=== PATIENT | female | born 1985 | race Caucasian/White ===

== ENCOUNTER 2017-10-25 11:25 | Observation (INO) | payer OTHER ==
[2017-10-25 14:28] LABS: Hematocrit 42 % (35-47); Hemoglobin 14.4 g/dl (12.0-16.0); Mean Corpuscular HGB Conc 35 g/dl (31-36); Mean Corpuscular Hemoglobin 28 pg (27-31); Mean Corpuscular Volume 82 fL (80-97); Mean Platelet Volume 8 um3 (7.4-10.4); Red Blood Count 5.07 10^6/ul (4.0-5.4); Red Cell Distribution Width 13 % (10.5-15); White Blood Count 10.4 10^3/ul (3.5-10.8)
[2017-10-25 14:36] LABS: Urine Bilirubin Negative (Negative); Urine Glucose Negative (Negative); Urine Nitrite Negative (Negative)
[2017-10-25] MEDS ORDERED: Ondansetron INJ* 2 MG/ML VIAL IV ONE ×2 (14:36→19:29)
[2017-10-25] MEDS ORDERED: Morphine INJ* 4 MG/ML 1 ML CARPUJECT IV ONE ×3 (14:36→19:29)
[2017-10-25] MEDS: NS 0.9% 1000 ML* 2,000 ML IV ONE (14:44)
[2017-10-25 14:45] LABS: Albumin 4.2 g/dL (3.2-5.2); BUN/Creatinine Ratio 7.5 (8-20); C Reactive Protein 7.82 mg/L (< 5.00); Calcium 9.7 mg/dL (8.6-10.3); EGFR African American 132.9 (>60); EGFR Non-African American 103.3 (>60); Globulin 3.6 g/dL (2-4); Total Bilirubin 0.5 mg/dL (0.2-1.0); Total Protein 7.8 g/dL (6.4-8.9)
[2017-10-25] MEDS ORDERED: Iohexol 300* (CONTRAST) 10 ML SDV IV ONE (15:30)
--- NOTE | 2017-10-25 16:01 | RAD ---
HISTORY: L pain COMPARISONS: None TECHNIQUE: Multiple transverse and longitudinal ultrasound images were obtained of the right upper quadrant of the abdomen using grayscale and color Doppler imaging. FINDINGS: LIVER: The liver is normal in shape, size, contour, and echogenicity. There are no focal parenchymal masses. There is normal hepatopedal flow of the portal vein on Doppler imaging. BILIARY TREE: There is no intrahepatic or extrahepatic biliary dilatation. The common duct measures 0.3 cm. GALLBLADDER: The gallbladder is well-visualized. There is no cholelithiasis, gallbladder wall thickening, pericholecystic fluid, or sonographic Vinson sign. PANCREAS: The head of the pancreas is unremarkable. The tail of the pancreas is not well visualized secondary to overlying bowel gas. RIGHT KIDNEY: The right kidney is normal in shape, size, contour, and echogenicity. There is no hydronephrosis or nephrolithiasis. The right kidney measures 11.5 x 5.2 x 4.5 cm. AORTA AND IVC: The aorta and IVC are unremarkable. FLUID: There are no pleural effusions. There is no free fluid within the hepatorenal recess. OTHER FINDINGS: None. IMPRESSION: NO ACUTE SONOGRAPHIC PATHOLOGY OF THE VISUALIZED PORTION OF THE ABDOMEN.
--- NOTE | 2017-10-25 17:19 | RAD ---
CLINICAL HISTORY: Abdominal pain, vomiting COMPARISON: The gallbladder ultrasound dated October 25, 2017 TECHNIQUE: Multiple contiguous axial CT scans were obtained of the abdomen and pelvis after the administration of intravenous contrast. Coronal and sagittal multiplanar reformations are submitted for review. Oral contrast was administered. Delayed images were obtained through the abdomen and pelvis. FINDINGS: LUNG BASES: The lung bases are clear. LIVER: The liver is diffusely low in attenuation compared to the spleen. There are no focal hepatic parenchymal masses. BILE DUCTS: There is no intrahepatic or extrahepatic biliary dilatation. GALLBLADDER: The gallbladder is normal, without pericholecystic inflammatory change. PANCREAS: The pancreas is normal, without mass or ductal dilatation. SPLEEN: Normal in size and appearance. UPPER GI TRACT: Evaluation of the gastrointestinal tract is limited by incomplete gastric distention. There is mucosal thickening of the pylorus. SMALL BOWEL AND MESENTERY: The small bowel is normal in contour, course, and caliber. There is no obstruction or dilatation. COLON: The colon is normal in contour, course, caliber. There is no pericolonic inflammatory change. There is a tubular, vermiform, hollow viscus that is blind ending, and originates from the cecum, consistent with a normal appendix. There is no periappendiceal inflammatory change. This is best seen on axial images 52 through 65. ADRENALS: Normal bilaterally. KIDNEYS: The kidneys are normal in shape, size, contour, and axis. There is no hydronephrosis or nephrolithiasis. BLADDER: The bladder is smooth in contour. PELVIC ORGANS: The uterus and adnexa are grossly normal for technique. AORTA: The aorta is normal. IVC: Unremarkable LYMPH NODES: There is no lymphadenopathy by size criteria. ABDOMINAL WALL: There is no evidence for abdominal wall hernia. BONES AND SOFT TISSUES: A limbus vertebral body versus an ununited ring apophysis is noted at L4 OTHER: None IMPRESSION: MUCOSAL THICKENING OF THE PYLORUS. WHILE THIS MAY BE AN ARTIFACT OF PERISTALSIS, MUCOSAL INFLAMMATORY OR NEOPLASTIC DISEASE MAY GIVE A SIMILAR APPEARANCE. IF CLINICALLY INDICATED, CONSIDER CORRELATION WITH DIRECT VISUALIZATION. FATTY INFILTRATION OF THE LIVER.
[2017-10-25] MEDS ORDERED: NS 0.9% 1000 ML* 1,000 ML IV ONE (19:29)
[2017-10-25] MEDS ORDERED: Lidocaine 2% VISCOUS* 15 ML UDC PO ONE (20:14)
[2017-10-25] MEDS ORDERED: Pantoprazole IV* 40 MG IV ONE (20:14)
[2017-10-25] MEDS ORDERED: Al Hydrox/Mg Hydrox/Simet LIQ* 30 ML UDC PO ONE (20:14)
[2017-10-25] MEDS ORDERED: Ondansetron INJ* 2 MG/ML VIAL IV PRN (20:43)
[2017-10-25] MEDS ORDERED: CMCS: Melatonin (NF) 3 MG TAB PO PRN (20:43)
[2017-10-25] MEDS ORDERED: Morphine INJ* 2 MG/ML 1 ML SYRINGE (TWO MG - NEW SYRINGE VERSION) IV PRN (20:43)
--- NOTE | 2017-10-25 21:46 | ED ---
Ruth Francis Thomas, scribed for Darshan Gibson MD on 10/25/17 at 1449 . Abdominal Pain/Female - HPI Summary HPI Summary: The patient is a 32 year old female presenting to the ED complaining of severe upper abdominal pain and cramping that began this morning at approximately 0145. Patient has IBS, so she has chronic abdominal pain, but this was different. Patient spent several hours dry heaving and trying to have a bowel movement to no avail. Pain has gotten worse over time. The patient notes two types of pain: the first is described as a stone being turned over in her stomach and the latter is an intermittent contraction-like pain located in the epigastric region. The pain is rated 9/10. Patient denies fevers, shortness of breath, and vomiting. The patient has a PSHx of a 4-5 years ago. - History of Current Complaint Chief Complaint: EDAbdPain Stated Complaint: ABD PAIN Time Seen by Provider: 10/25/17 14:27 Hx Obtained From: Patient ?: No Onset/Duration: Sudden Onset - onset 0145 this morning, Lasting Hours - onset 01 :45 this AM, Still Present Timing: Constant - with episodes of contraction-like pains Severity Initially: Severe Severity Currently: Severe Pain Intensity: 9 Pain Scale Used: 0-10 Numeric Location: Epigastric Character: Cramping, Other: - like a "stone being turned over and over" Aggravating Factor(s): Nothing Alleviating Factor(s): Nothing Associated Signs and Symptoms: Positive: Constipation, Other: - Dry heaving. Negative: shortness of breath. Negative: Fever, Vomiting Allergies/Adverse Reactions: Allergies Allergy/AdvReac Type Severity Reaction Status Date / Time No Known Allergies Allergy Verified 10/25/17 13:42 PMH/Surg Hx/FS Hx/Imm Hx Previously Healthy: No GI History: Reports: Hx Irritable Bowel Opthamlomology History: Denies: Hx Legally Blind EENT History: Denies: Hx Deafness Infectious Disease History: No Infectious Disease History: Denies: Traveled Outside the [place] in Last 30 Days - Family History Known Family History: Positive: Cardiac Disease, Diabetes - Social History Alcohol Use: Rare Hx Substance Use: No Substance Use Type: Reports: None Hx Tobacco Use: No Smoking Status (MU): Never Smoked Tobacco Review of Systems Negative: Fever Negative: Shortness Of Breath Positive: Abdominal Pain, Nausea. Negative: Vomiting, Diarrhea Positive: other - constipation All Other Systems Reviewed And Are Negative: Yes Physical Exam - Summary Physical Exam Summary: General: well-appearing, mild-moderate pain distress Skin: warm, color reflects adequate perfusion, dry Head: normal Eyes: EOMI, GEORGINA ENT: normal Neck: supple, nontender Respiratory: CTA, breath sounds present Cardiovascular: RRR Abdomen: soft. Epigastric region is tender to palpation. Bowel: Hypoactive bowel sounds Musculoskeletal: normal, strength/ROM intact Neurological: normal, sensory/motor intact, A&O x3 Psychological: affect/mood appropriate Triage Information Reviewed: Yes Vital Signs On Initial Exam: Initial Vitals Temp Pulse Resp BP Pulse Ox 97.3 F 101 16 139/87 98 10/25/17 11:30 10/25/17 11:30 10/25/17 11:30 10/25/17 11:30 10/25/17 11:30 Vital Signs Reviewed: Yes - Sandee Coma Scale Coma Scale Total: 15 Diagnostics - Vital Signs Vital Signs Temp Pulse Resp BP Pulse Ox 10/25/17 13:20 98.2 F 100 18 137/80 100 10/25/17 11:30 97.3 F 101 16 139/87 98 - Laboratory Lab Results: Lab Results 10/25/17 10/25/17 Range/Units 14:15 14:25 WBC 10.4 (3.5-10.8) 10^3/ul RBC 5.07 (4.0-5.4) 10^6/ul Hgb 14.4 (12.0-16.0) g/dl Hct 42 (35-47) % MCV 82 (80-97) fL MCH 28 (27-31) pg MCHC 35 (31-36) g/dl RDW 13 (10.5-15) % Plt Count 292 (150-450) 10^3/ul MPV 8 (7.4-10.4) um3 Neut % (Auto) 68.2 (38-83) % Lymph % (Auto) 25.7 (25-47) % [place] % (Auto) 5.2 (1-9) % Eos % (Auto) 0.5 (0-6) % Baso % (Auto) 0.4 (0-2) % Absolute Neuts (auto) 7.1 (1.5-7.7) 10^3/ul Absolute Lymphs (auto) 2.7 (1.0-4.8) 10^3/ul Absolute Monos (auto) 0.5 (0-0.8) 10^3/ul Absolute Eos (auto) 0.1 (0-0.6) 10^3/ul Absolute Basos (auto) 0 (0-0.2) 10^3/ul Absolute Nucleated RBC 0 10^3/ul Nucleated RBC % 0 Urine Color Yellow Urine Appearance Clear Urine pH 6.0 (5-9) Ur Specific [place] 1.016 (1.010-1.030) Urine Protein Negative (Negative) Urine Ketones Trace H (Negative) Urine Blood Negative (Negative) Urine Nitrate Negative (Negative) Urine Bilirubin Negative (Negative) Urine Urobilinogen Negative (Negative) Ur Leukocyte Esterase Negative (Negative) Urine Glucose Negative (Negative) Urine Ascorbic Acid * H (Negative) Result Diagrams: 10/25/17 14:15 10/25/17 14:15 Lab Statement: Any lab studies that have been ordered have been reviewed, and results considered in the medical decision making process. - CT CT Abd/Pel CT Interpretation: Positive (See Comments) - MUCOSAL THICKENING OF THE PYLORUS. WHILE THIS MAY BE AN ARTIFACT OF PERISTALSIS, MUCOSAL INFLAMMATORY OR NEOPLASTIC DISEASE MAY GIVE A SIMILAR APPEARANCE. IF CLINICALLY INDICATED, CONSIDER CORRELATION WITH DIRECT VISUALIZATION. FATTY INFILTRATION OF THE LIVER. Dr. Gibson has reviewed this report. CT Interpretation Completed By: Radiologist - Additional Comments Diagnostic Additional Comments: Gallbladder ultrasound. Interpreted by radiologist. Impression: NO ACUTE SONOGRAPHIC PATHOLOGY OF THE VISUALIZED PORTION OF THE ABDOMEN. Dr. Gibson has reviewed this report. Abdominal Pain Fem Course/Dx - Course Course Of Treatment: Blood pressure noted. Medications reviewed. PAIN REOCCURRING AFTER IV PAIN MEDS. DISCUSSED WITH DR HATHAWAY, GI. ADMIT HOSPITALIST. - Diagnoses Provider Diagnoses: Abdominal pain - Provider Notifications Discussed Care Of Patient With: John Hathaway Time Discussed With Above Provider: 19:36 Instructed by Provider To: Other - I consulted Dr. Hathaway (medical associate) , who recommends admission. I consulted at 20:[address] Basilio, rotary bar operator, who admits the patient. Discharge - Discharge Plan Condition: Stable Disposition: ADMITTED TO [facility] Referrals: Ross MEDEIROS,Gabino Valerio [Primary Care Provider] - The documentation as recorded by the Ruth hadley Thomas accurately reflects the service I personally performed and the decisions made by me, Darshan Gibson MD.
[2017-10-25] MEDS: NS 0.9% 1000 ML* 1,000 ML IV SCH (22:18)
[2017-10-25] MEDS: oxyCODONE TAB* 5 MG TAB PO PRN (23:08)
[2017-10-26] MEDS: Acetaminophen TAB* 325 MG PO PRN ×3 (02:07→17:54)
[2017-10-26] MEDS: oxyCODONE TAB* 5 MG TAB PO PRN (03:47)
--- NOTE | 2017-10-26 04:17 | HP ---
H&P (Free Text) History and Physical: PCP: Judy Hawkins MD Date/Time: 10/25/20172029 CC: abdominal pain HPI: Mrs Hernandez is a 32YO female HX IBS presents with onset of cramping B upper & epigastric abdominal pain that awoke her from sleep at 0145 associated with nausea, dry heaves, and sweats, but no F/C, change in bowel/bladder, or other issues. The pain increased throughout the day. A hot bath made it slightly better, but food and Pepto Bismol did not help. Last BM was yesterday morning and normal. PMedHx IBS migraines eczema lactose intolerance Ambulatory Orders Cholecalciferol [Vitamin D] 4,000 unit PO DAILY 10/25/17 Hgbcictcuai-Pdjlkjbbokv-Rkk C- [Glucosamine Chondroitin] 1 tab PO BID 10/25/17 Multiple Vitamins W/ Minerals [Multivitamin Adults] 1 tab PO DAILY 10/25/17 Eckert-3 Fatty Acids [Fish Oil] 1,000 mg PO DAILY 10/25/17 Probiotic Product [Probiotic] 1 tab PO DAILY 10/25/17 Tumeric 1 tab PO DAILY 10/25/17 Allergies No Known Allergies Allergy (Verified 10/25/17 13:42) PSurgHx 2013 tonsillectomy SocHx: no tobacco, rare alcohol, no recreational drugs; lives with ; works at [employer] in [place]; full code status FamHx: Mother: autoimmune hepatitis; Father: chronic LBP; Sister: Marfan's, open heart surgery x2, eczema; Brother: asthma, eczema, drug addiction, seizure disorder ROS: as above, otherwise reviewed and all were negative vitals: Vital Signs Temp 36.5 C 10/25/17 23:16 Pulse 90 10/25/17 23:16 Resp 15 10/26/17 03:47 BP 125/78 10/25/17 23:16 Pulse Ox 100 10/25/17 23:16 Intake & Output 10/25/17 10/25/17 10/26/17 11:59 23:59 11:59 Intake Total 2000 0 Output Total 400 Balance 1999 - Weight 83.915 kg 83.915 kg Intake: IV Fluids 2000 Oral 0 Output: Urine 400 Constitutional: NAD, normally developed, obese white female HEENM: atraumatic; sclera/conjunctiva: anicteric/clear; hearing: clinically intact; oropharynx: clear, mucosa moist Neck: soft tissue: non-tender; thyroid: normal Pulmonary: clear to auscultation bilaterally, good aeration, no accessory muscle use CV: RR/RR, normal S1S2, no carotid bruit, no jugular venous distention, 2+ B DP/ PT, no edema Abdominal: soft, non-distended, non-tender, no rebound/guarding/rigidity, normoactive bowel sounds, no hepatosplenomegaly or masses, no costovertebral angle tenderness Musculoskeletal: general: grossly intact; gait: stable Integumental: normal appearance and texture of exposed skin Psychiatric orientation: AA&O to PPS affect: calm mood: cooperative eye contact: good content: reliable responses: timely insight: good Testing: Lab Results 10/25/17 10/25/17 10/25/17 Range/Units 14:15 14:15 14:15 WBC 10.4 (3.5-10.8) 10^3/ul RBC 5.07 (4.0-5.4) 10^6/ul Hgb 14.4 (12.0-16.0) g/dl Hct 42 (35-47) % MCV 82 (80-97) fL MCH 28 (27-31) pg MCHC 35 (31-36) g/dl RDW 13 (10.5-15) % Plt Count 292 (150-450) 10^3/ul MPV 8 (7.4-10.4) um3 Neut % (Auto) 68.2 (38-83) % Lymph % (Auto) 25.7 (25-47) % [place] % (Auto) 5.2 (1-9) % Eos % (Auto) 0.5 (0-6) % Baso % (Auto) 0.4 (0-2) % Absolute Neuts (auto) 7.1 (1.5-7.7) 10^3/ul Absolute Lymphs (auto) 2.7 (1.0-4.8) 10^3/ul Absolute Monos (auto) 0.5 (0-0.8) 10^3/ul Absolute Eos (auto) 0.1 (0-0.6) 10^3/ul Absolute Basos (auto) 0 (0-0.2) 10^3/ul Absolute Nucleated RBC 0 10^3/ul Nucleated RBC % 0 Sodium 138 (133-145) mmol/L Potassium 4.0 (3.5-5.0) mmol/L Chloride 105 (101-111) mmol/L Carbon Dioxide 25 (22-32) mmol/L Anion Gap 8 (2-11) mmol/L BUN 5 L (6-24) mg/dL Creatinine 0.67 (0.51-0.95) mg/dL Est GFR ( Amer) 132.9 (>60) Est GFR (Non-Af Amer) 103.3 (>60) BUN/Creatinine Ratio 7.5 L (8-20) Glucose 93 (70-100) mg/dL Lactic Acid 0.7 (0.5-2.0) mmol/L Calcium 9.7 (8.6-10.3) mg/dL Total Bilirubin 0.50 (0.2-1.0) mg/dL AST 13 (13-39) U/L ALT 16 (7-52) U/L Alkaline Phosphatase 53 (34-104) U/L C-Reactive Protein 7.82 H (< 5.00) mg/L Total Protein 7.8 (6.4-8.9) g/dL Albumin 4.2 (3.2-5.2) g/dL Globulin 3.6 (2-4) g/dL Albumin/Globulin Ratio 1.2 (1-3) Lipase 14 (11.0-82.0) U/L Beta HCG, Quant 0.71 mIU/mL Urine Color Urine Appearance Urine pH (5-9) Ur Specific [place] (1.010-1.030) Urine Protein (Negative) Urine Ketones (Negative) Urine Blood (Negative) Urine Nitrate (Negative) Urine Bilirubin (Negative) Urine Urobilinogen (Negative) Ur Leukocyte Esterase (Negative) Urine Glucose (Negative) Urine Ascorbic Acid (Negative) 10/25/17 Range/Units 14:25 WBC (3.5-10.8) 10^3/ul RBC (4.0-5.4) 10^6/ul Hgb (12.0-16.0) g/dl Hct (35-47) % MCV (80-97) fL MCH (27-31) pg MCHC (31-36) g/dl RDW (10.5-15) % Plt Count (150-450) 10^3/ul MPV (7.4-10.4) um3 Neut % (Auto) (38-83) % Lymph % (Auto) (25-47) % [place] % (Auto) (1-9) % Eos % (Auto) (0-6) % Baso % (Auto) (0-2) % Absolute Neuts (auto) (1.5-7.7) 10^3/ul Absolute Lymphs (auto) (1.0-4.8) 10^3/ul Absolute Monos (auto) (0-0.8) 10^3/ul Absolute Eos (auto) (0-0.6) 10^3/ul Absolute Basos (auto) (0-0.2) 10^3/ul Absolute Nucleated RBC 10^3/ul Nucleated RBC % Sodium (133-145) mmol/L Potassium (3.5-5.0) mmol/L Chloride (101-111) mmol/L Carbon Dioxide (22-32) mmol/L Anion Gap (2-11) mmol/L BUN (6-24) mg/dL Creatinine (0.51-0.95) mg/dL Est GFR ( Amer) (>60) Est GFR (Non-Af Amer) (>60) BUN/Creatinine Ratio (8-20) Glucose (70-100) mg/dL Lactic Acid (0.5-2.0) mmol/L Calcium (8.6-10.3) mg/dL Total Bilirubin (0.2-1.0) mg/dL AST (13-39) U/L ALT (7-52) U/L Alkaline Phosphatase (34-104) U/L C-Reactive Protein (< 5.00) mg/L Total Protein (6.4-8.9) g/dL Albumin (3.2-5.2) g/dL Globulin (2-4) g/dL Albumin/Globulin Ratio (1-3) Lipase (11.0-82.0) U/L Beta HCG, Quant mIU/mL Urine Color Yellow Urine Appearance Clear Urine pH 6.0 (5-9) Ur Specific [place] 1.016 (1.010-1.030) Urine Protein Negative (Negative) Urine Ketones Trace H (Negative) Urine Blood Negative (Negative) Urine Nitrate Negative (Negative) Urine Bilirubin Negative (Negative) Urine Urobilinogen Negative (Negative) Ur Leukocyte Esterase Negative (Negative) Urine Glucose Negative (Negative) Urine Ascorbic Acid * H (Negative) ECG, personally reviewed: NSR rate 90, no ischemia CT abd/pel, personally reviewed: no acute findings, report unavailable for review US gallbladder: report unavailable for review, reported as negative by ED MD Impression: 32F presenting with intractable upper abdominal pain DIAGNOSIS & PLAN Primary intractable upper abdominal pain : pain control : recheck labs in AM : Danyel Juarez MD GI consulted by ED, will evaluate in AM : supportive care Admission Rational: observation for intractable abdominal pain DVTp: JOSE Code Status: full HCP:
[2017-10-26 05:33] LABS: Hematocrit 35 % (35-47); Mean Corpuscular HGB Conc 34 g/dl (31-36); Mean Corpuscular Hemoglobin 28 pg (27-31); Mean Corpuscular Volume 82 fL (80-97); Mean Platelet Volume 8 um3 (7.4-10.4); Red Blood Count 4.29 10^6/ul (4.0-5.4); Red Cell Distribution Width 13 % (10.5-15); White Blood Count 8.4 10^3/ul (3.5-10.8)
[2017-10-26] MEDS: Omeprazole CAP* 20 MG PO SCH (05:41)
[2017-10-26 05:56] LABS: BUN/Creatinine Ratio 8.5 (8-20); Calcium 8.4 mg/dL (8.6-10.3); EGFR African American 153.9 (>60); EGFR Non-African American 119.7 (>60); Potassium 4.1 mmol/L (3.5-5.0)
[2017-10-26] MEDS: NS 0.9% 1000 ML* 1,000 ML IV SCH ×2 (06:22→16:24)
--- NOTE | 2017-10-26 12:48 | PN ---
Subjective Date of Service: 10/26/17 Interval History: Ms. Hernandez states that she is feeling about the same as when she was admitted. She continues to have a cramping, squeezing epigastric pain that comes in waves. She notes that this was exacerbated when she tried to eat jello. She denies other complaint including nausea, chest pain or SOB. Objective Active Medications: Acetaminophen (Tylenol Tab*) 650 mg PO Q6H PRN Sodium Chloride (Ns 0.9% 1000 Ml*) 1,000 mls @ 125 mls/hr IV PER RATE ORALIA Melatonin (Melatonin (Nf)) 3 mg PO BEDTIME PRN; Protocol Morphine Sulfate (Morphine Inj (Syringe)*) 2 mg IV Q4H PRN Omeprazole (Prilosec Cap*) 20 mg PO DAILY@0600 ORALIA Ondansetron HCl (Zofran Inj*) 4 mg IV Q6H PRN Oxycodone HCl (Roxycodone Tab*) 5 mg PO Q4H PRN Vital Signs: Temp Pulse Resp BP Pulse Ox 98.2 F 75 18 116/67 94 10/26/17 11:19 10/26/17 11:19 10/26/17 11:19 10/26/17 11:19 10/26/17 11:19 Oxygen Devices in Use Now: None Appearance: Patient lying in bed in NAD Eyes: No Scleral Icterus Ears/Nose/Mouth/Throat: Mucous Membranes Moist Neck: NL Appearance and Movements; NL JVP, Trachea Midline Respiratory: Symmetrical Chest Expansion and Respiratory Effort, Clear to Auscultation Cardiovascular: NL Sounds; No Murmurs; No JVD, No Edema Abdominal: - - Soft, tender to palpation in epigastric area, no rebound or guarding, BS hypoactive Lymphatic: No Cervical Adenopathy Extremities: No Edema Skin: No Rash or Ulcers Neurological: Alert and Oriented x 3, NL Muscle Strength and Tone Nutrition: Taking PO's Result Diagrams: 10/26/17 05:25 10/26/17 05:25 Additional Lab and Data: . Assess/Plan/Problems-Billing Assessment: Ms. Hernandez is a 32 yo female with a PMH of IBS who was admitted on with upper abdominal pain with CT finding of mucosal thickening of the pylorus. - Patient Problems (1) Abdominal pain Comment: - Persistent cramping epigastric pain. - Mucosal thickening of the pylorus noted on CT scan, of uncertain significance. - Labs unremarkable, vitals stable. - GI consult pending, plan for EGD this afternoon. - NPO, continue IVF. (2) DVT prophylaxis Comment: - Early mobility. (3) Full code status Status and Disposition: OBV. Anticipate discharge to home when medically stable.
[2017-10-26] MEDS ORDERED: fentaNYL* 50 MCG/ML 2 ML VIAL (100 MCG VIAL) ONE (15:06)
[2017-10-26] MEDS ORDERED: Midazolam* 1 MG/ML 10 ML VIAL (10 MG) ONE (15:06)
[2017-10-27] MEDS: NS 0.9% 1000 ML* 1,000 ML IV SCH (00:47)
[2017-10-27] MEDS: Acetaminophen TAB* 325 MG PO PRN (05:05)
[2017-10-27] MEDS: Omeprazole CAP* 20 MG PO SCH (05:33)
[2017-10-27 07:55] VITALS: BP 114/72
--- NOTE | 2017-10-27 11:10 | PRO ---
CC: Dr. Gabino Hawkins * DATE OF PROCEDURE: 10/26/2017 - ROOM #333 PROCEDURE PERFORMED: EGD. INDICATION: Abdominal pain. REFERRING PHYSICIAN: Dr. Gabino Hawkins. MEDICATIONS GIVEN: 75 mcg IV Fentanyl and 9 mg IV Versed. PROCEDURE: After the EGD procedure, including the risks, benefits, and alternatives, not limited to perforation, surgery, and/or were explained to Ms. Hernandez, written consent was then obtained. IV medication was given and a bite-block was placed between the teeth. An Olympus gastroscope was then inserted into the patient's mouth, advanced down the esophagus, into the stomach, and into the distal duodenum. In the esophagus at the GE junction , the Z-line was intact. No erosive esophagitis, stricture, or ring was seen. The scope was advanced through a widely patent GE junction and into the body of the stomach. Retroflex view was unremarkable. Forward view did reveal numerous small linear ulcers in the antrum and the body and in the prepyloric region, there was slight deformity and a larger ulcer all were clean based, none were bleeding. The scope was gently advanced through the pylorus and into the duodenal bulb. It was unremarkable. The scope was then withdrawn from the patient. Biopsies were obtained from the body of the stomach and the scope was withdrawn from the patient. IMPRESSION: 1. Complete upper endoscopy into the duodenal bulb with biopsies. 2. Gastric ulcer, status post biopsies. 3. The patient tells me she really does not take many nonsteroidals. I did biopsy for H. pylori. She should remain on a PPI. We can advance her diet. She will need a repeat EGD in six to eight weeks from now. [id number]/[facility] #: [id number] [facility]
--- NOTE | 2017-10-27 14:41 | CONS ---
CONSULTATION REPORT: DATE OF CONSULT: 10/26/17 INDICATION: Abdominal pain. REQUESTING PHYSICIAN: Dr. Basilio. NARRATIVE: Ms. Hernandez is a pleasant 32-year-old female who awoke in the middle of the night with abdominal pain, nausea and dry heaving. She states she has never had pain like this before. The pain was located in her epigastrium. She does have a history of IBS, but this feels different than her typical IBS symptoms. She pretty much denies nonsteroidals. She will take Advil occasionally for migraines, but has not taken any recently, has been feeling slightly under the weather with flu-type symptoms and was taking Sintia- Easley over the past 3 to 4 days. Bowel habits have not changed at all. They are irregular due to her IBS. No blood in the stool, no black and tarry stools. No unintentional weight loss. PAST MEDICAL HISTORY: Significant for IBS, migraines, lactose intolerance and eczema. PAST SURGICAL HISTORY: She had a tonsillectomy and a . MEDICATIONS UPON ADMISSION: Include: 1. Glucosamine. 2. Fish oil. 3. Probiotic. 4. Turmeric. ALLERGIES: None. SOCIAL HISTORY: Rarely drinks alcohol. No tobacco. No IV drugs. REVIEW OF SYSTEMS: 12 systems are reviewed, other than that mentioned in the HPI were unremarkable. PHYSICAL EXAM: Vital Signs: Temperature is 98.2, blood pressure 116/67, pulse is 75, respiratory rate of 18. General: Well-appearing female in no apparent distress. Alert, oriented, pleasant, fluent, lying flat in bed. HEENT: Mucous membranes are moist without lesions, ulcers, or exudate. Neck is supple. Trachea is midline. Head is normocephalic, atraumatic. Heart: Regular rate and rhythm. No murmurs, rubs or gallops. Lungs: Clear to auscultation bilaterally. No wheezes, rales or rhonchi. Abdomen is obese, positive bowel sounds, soft, mild epigastric tenderness. No rebound. No guarding. No masses were felt. Skin is warm and dry. No rashes or ulcers. Psych: Normal affect. Good insight. 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 Musculoskeletal: No CVA or spinal tenderness to palpation. DIAGNOSTIC STUDIES/LAB DATA: Of note, white count is 8.4, hemoglobin is 12, platelets are normal at 241,000. BUN and creatinine are normal and she does have a CT abdomen and pelvis, which shows antral thickening potentially due to gastritis, potentially due to incomplete distention and CT artifact. ASSESSMENT AND PLAN: A 32-year-old female with epigastric pain with a CT finding of possible gastritis. I would like to perform an upper endoscopy for further evaluation. We discussed possible options including Helicobacter pylori , peptic ulcer disease. We will follow up with the EGD. [id number]/[facility] [facility] #: [id number] [facility]
[2017-10-27] MEDS ORDERED: Omeprazole CAP* 20 MG PO SCH (18:00)
--- NOTE | 2017-10-28 03:34 | DS ---
CC: Dr. Hawkins; Dr. Morin * DISCHARGE SUMMARY: DATE OF ADMISSION: 10/25/17 DATE OF DISCHARGE: 10/27/17 MOTTLE LAY UP OPERATOR: Dr. Morin. PRIMARY CARE PROVIDER: Dr. Hawkins. DISCHARGING PROVIDER: JESSE Piper SUPERVISING PHYSICIAN: Dr. Ramez Romero * (DICTATED BY JESSE PIPER) PRIMARY DISCHARGE DIAGNOSIS: Multiple gastric ulcers without gastrointestinal bleed. SECONDARY DISCHARGE DIAGNOSES: 1. Irritable bowel syndrome. 2. History of migraine headaches. DISCHARGE MEDICATIONS: 1. Vitamin D 4000 units p.o. daily. 2. Glucosamine and chondroitin 1 tablet p.o. twice daily. 3. Multivitamin 1 tablet p.o. daily. 4. Fish oil 1000 mg p.o. daily. 5. Omeprazole 20 mg p.o. twice daily. 6. Probiotic 1 tablet p.o. twice daily. 7. Turmeric 1 tablet p.o. daily. Medication changes: 1. Start omeprazole. HOSPITAL IMAGING: Ultrasound of the gallbladder shows no acute pathology. CT of the abdomen and pelvis shows mucosal thickening of the pylorus, which may be due to peristalsis. No other acute findings noted. HOSPITAL COURSE: This is a 32-year-old female with a history of irritable bowel syndrome as well as migraine headaches, who presented to the emergency department with complaints of severe abdominal pain. The patient states that the pain awoke her from sleep and with associated nausea and dry heaves, but no associated diarrhea or fevers. The patient's initial labs were really unremarkable including the urinalysis, CBC, and comprehensive metabolic panel. Imaging of her abdomen and pelvis demonstrated possible thickening of the pylorus, but no other focal pathology. The patient was subsequently admitted to the hospital due to the severity of her abdominal pain for further evaluation. GI was consulted and she underwent EGD, which demonstrated multiple small gastric ulcers, none of which were actively bleeding. Pathology was collected and CLOtesting performed, which was negative for H. pylori. Pathology was benign and also did not directly identify any H. pylori organisms. The patient denied any regular NSAID use or excessive alcohol intake and she is not a smoker. The etiology of her gastric ulcers were unclear. She states that she did undergo an EGD once as a child due to her frequent GI complaints, but that was reportedly unremarkable with the exception of may be some mild gastritis. The patient's symptoms improved with initiation of PPI. She was able to tolerate a soft bland diet at the time of discharge without severe abdominal pain. DISPOSITION AND FOLLOWUP PLAN: The patient is being discharged to home where she lives with her . Recommend b.i.d. PPI therapy and follow up with GI in approximately 6 weeks for a repeat endoscopy. JESSE PIPER [id number]/[facility] #: [id number] MTDMaria M
== END 2017-10-27 10:00 | disposition home or self-care (01) ==
LOC: ED 11:25 → SSU 20:41
PROVIDERS: ADMIT Hospitalist; ATTEND Internal Medicine
DX: K25.9 Gastric ulcer, unspecified as acute or chronic, without hemorrhage or perforation (principal); K58.9 Irritable bowel syndrome, unspecified
CPT/HCPCS: 36415; 74177; 76705; 80048; 80053; 81003; 83605; 83690; 84702; 85025; 86140; 87077; 88305; 93005; 96374; 96375; 99156; 99157; 99285; A9270-GY; G0378; J2250; J2270; J2405; J3010; Q9967

== ENCOUNTER 2018-03-12 16:46 | Emergency (ER) | payer OTHER ==
[2018-03-12 17:26] VITALS: BP 129/95
--- NOTE | 2018-03-12 18:31 | ED ---
Respiratory - HPI Summary HPI Summary: 32 yo WF h/o cough x 4 weeks not has continued chills and now yellow green sputum associated with bad right lateral pleuritic CP. Took only claritin and Mucinex for her condition but not seem to be getting better - History of Current Complaint Chief Complaint: UCRespiratory Stated Complaint: COUGH,SINUS PAIN Time Seen by Provider: 03/12/18 17:00 Hx Obtained From: Patient Onset/Duration: Lasting Weeks, Worse Since Initial Severity: Severe Current Severity: Severe Pain Intensity: 6 Character: Cough (Nonproductive) Sputum Amount: Moderate Sputum Color: Yellow, Green Aggravating Factor(s): Deep Breaths Alleviating Factor(s): Nothing - Allergy/Home Medications Allergies/Adverse Reactions: Allergies Allergy/AdvReac Type Severity Reaction Status Date / Time gluten Allergy GI Upset Verified 03/12/18 17:26 lactose Allergy GI Upset Verified 03/12/18 17:26 PMH/Surg Hx/FS Hx/Imm Hx Previously Healthy: Yes Endocrine/Hematology History: Denies: Hx Diabetes Cardiovascular History: Denies: Hx Hypertension GI History: Reports: Hx Irritable Bowel History: Denies: Hx Renal Disease Musculoskeletal History: Reports: Hx Back Problems - 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 Sensory History: Reports: Hx Contacts or Glasses Denies: Hx Legally Blind, Hx Deafness, Hx Hearing Aid Opthamlomology History: Reports: Hx Contacts or Glasses Denies: Hx Legally Blind Neurological History: Reports: Hx Migraine - Surgical History Surgery Procedure, Year, and Place: Infectious Disease History: No Infectious Disease History: Denies: Traveled Outside the [place] in Last 30 Days - Family History Known Family History: Positive: Cardiac Disease, Diabetes - Social History Alcohol Use: Rare Hx Substance Use: No Substance Use Type: Reports: None Hx Tobacco Use: No Smoking Status (MU): Former Smoker Review of Systems Positive: Chills Eyes: Negative ENT: Negative Cardiovascular: Negative Positive: Shortness Of Breath, Cough Gastrointestinal: Negative Genitourinary: Negative Musculoskeletal: Negative Skin: Negative All Other Systems Reviewed And Are Negative: Yes Physical Exam Triage Information Reviewed: Yes Vital Signs On Initial Exam: Initial Vitals Temp Pulse Resp BP Pulse Ox 37.0 C 70 18 129/95 98 03/12/18 17:23 03/12/18 17:23 03/12/18 17:23 03/12/18 17:23 03/12/18 17:23 Vital Signs Reviewed: Yes Appearance: Positive: Ill-Appearing Skin: Positive: Warm Eyes: Positive: Normal ENT: Positive: Normal ENT inspection Neck: Positive: Supple Respiratory/Lung Sounds: Positive: Breath Sounds Present, Wheezes Cardiovascular: Positive: Normal, RRR, S1, S2 Abdomen Description: Positive: Nontender Musculoskeletal: Positive: Normal Neurological: Positive: Normal, CN Intact II-III Diagnostics - Vital Signs Vital Signs Temp Pulse Resp BP Pulse Ox 03/12/18 17:23 37.0 C 70 18 129/95 98 - Laboratory Lab Statement: Any lab studies that have been ordered have been reviewed, and results considered in the medical decision making process. Disposition - Course Course Of Treatment: walking PNA likely with persistent sx , cough with sputum and fevers - will tx with Levaquin and GUaifenesin-pseudoephedrine - Diagnoses Provider Diagnoses: Atypical pneumonia Discharge - Sign-Out/Discharge Documenting (check all that apply): Discharge/Admit/Transfer - Discharge Plan Condition: Stable Disposition: HOME Prescriptions: Guaifenesin/Pseudoephedrne HCl [Guaifenesin-Pse ER 600-60 mg] 1 each PO BID 10 Days #20 tab.er.12h Levofloxacin TAB* [Levaquin TAB*] 500 mg PO DAILY 7 Days #7 tab Patient Education Materials: Pneumonia (ED) Referrals: Ross MEDEIROS,Gabino Valerio [Primary Care Provider] - - Billing Disposition and Condition Condition: STABLE Disposition: HOME
== END 2018-03-12 18:34 | disposition home or self-care (01) ==
LOC: UCEAST 16:46
DX: J18.9 Pneumonia, unspecified organism (principal); G43.909 Migraine, unspecified, not intractable, without status migrainosus; Z87.891 Personal history of nicotine dependence
CPT/HCPCS: 99212; G0463

== ENCOUNTER 2019-09-13 17:11 | Emergency (ER) | payer OTHER ==
--- OUTSIDE RECORDS SUMMARY | 2019-09-13 17:19 | XMS REPORT | Continuity of Care Document ---
:1985 External Reference #:[id number] Author Name Gabino Hawkins MD Address [address] [place] [address] Care Team Providers Name Role Phone Patient/Self Care Team Information Job Order Clerk Unavailable Problems Active Problems Provider Date Mixed hyperlipidemia Gabino Hawkins MD Onset: 07/01/2011 Migraine Gabino Hawkins MD Onset: 06/01/2014 Irritable bowel syndrome Gabino Hawkins MD Onset: 11/04/2017 Gastric ulcer Gabino Hawkins MD Onset: 11/04/2017 Social History Type Date Description Comments Sex Unknown Cigarette Use Negative For Current Cigarette Smoker ETOH Use Rarely consumes alcohol Recreational Drug Use Never Used Drugs Seat Belt/Car Seat Always uses seat belt Allergies, Adverse Reactions, Alerts Active Allergies Reaction Severity Comments Date Levaquin Throat [place] Swollen 03/19/2018 Dairy lactose intolerant 08/30/2019 Gluten 08/30/2019 Inactive Allergies NKDA 12/12/2001 Medications Active Medications SIG Qnty Indications Ordering Provider Date Escitalopram Oxalate 1 by mouth every 30tabs F41.0 Gabino Hawkins 2018 day 10mg Tablets Multi Vitamin 1 every day 30tabs Unknown Tablets Vitamin D 1 po qd Patient/Self 2000Units Probiotic Acidophilus 1 daily as Unknown directed Capsules Fish Oil 2 every day Unknown 1000mg Capsules Turmeric Curcumin 800 mg 1 by mouth Unknown every day Capsules Magnesium 1 by mouth every Unknown 400mg Tablets day Ruthie Allergy 1 by mouth every Unknown 180mg day Tablets [place] Mushrooms 550 MG 1 tab Unknown daily [place] Mushrooms 550 mg 1 tab Unknown daily [place] OTC 5 mg 1 tab daily Unknown Medications Administered in Office Medication SIG Qnty Indications Ordering Provider Date Ketorolac 15mg Ramez Conte, 03/08/2000 Injection P.ATeodoro Wall Immunizations CPT Code Status Date Vaccine Lot # [id number] Given 08/06/2018 Flu/Afluria/Seqirus Records Only [id number] Given 02/27/2010 Adacel (TdaP) [id number] Vital Signs Date Vital Result Comment 08/30/2019 9:09am Weight 207.00 lb Height 61.75 inches 5'1.75" BP Systolic 124 mmHg BP Diastolic 88 mmHg Heart Rate 100 /min BMI (Body Mass Index) 38.2 kg/m2 04/13/2018 10:31am Weight 203.00 lb Height 61.75 inches 5'1.75" BP Systolic 118 mmHg BP Diastolic 80 mmHg Body Temperature 98.4 F Heart Rate 80 /min BMI (Body Mass Index) 37.4 kg/m2 Results Description No Information Available Procedures Date Code Description Status 01/26/2017 [id number] Mammogram Completed Medical Devices Description No Information Available Encounters Type Date Location Provider Dx Diagnosis Office Visit 08/30/2019 [facility] Gabino Hawkins F43.20 Adjustment 8:40a Physicians Surendra MEDEIROS disorder, unspecified F41.0 Panic disorder [episodic paroxysmal anxiety] Z68.38 Body mass index (BMI) 38.0-38.9, adult Assessments Date Code Description Provider 08/30/2019 F43.20 Adjustment disorder Gabino Hawkins MD 08/30/2019 F41.0 Panic attack Gabino Hawkins MD 08/30/2019 Z68.38 Body mass index (BMI) 38.0-38.9, adult Gabino Hawkins MD Plan of Treatment 08/30/2019 - Gabino Hawkins MDF43.20 Adjustment disorderComments:Rec counselling.Pt agrees to trial this at a par. provider/ ?MSWTrial rx and close fu.call or fu sooner prn.Follow up:.F41.0 Panic attackNew Medication: Escitalopram Oxalate 10 mg - 1 by mouth every dayComments:as above.Follow up:. maria 2-3 wksZ68.38 Body mass index (BMI) 38.0-38.9, adultComments:stable.Follow up:.AllFollow up:. Functional Status Description No Information Available Mental Status Description No Information Available Referrals Description No Information Available
[2019-09-13 17:48] VITALS: BP 126/81
--- NOTE | 2019-09-13 18:51 | UC ---
Throat Pain/Nasal Jeremy HPI - HPI Summary HPI Summary: 33 year old female with URI s/s x 4 weeks, have changed from being cough, sore throat/ cold sytmpoms to now located only in sinuses. + pressure, + pain. + post nasal drip. + fatigue - History of Current Complaint Chief Complaint: UCRespiratory Stated Complaint: POSS SINUS INFECTION Time Seen by Provider: 09/13/19 18:33 Hx Obtained From: Patient Hx Last Menstrual Period: 08/13/19 ?: No Onset/Duration: Lasting Weeks, Still Present Severity: Moderate Pain Intensity: 3 Pain Scale Used: 0-10 Numeric - Allergies/Home Medications Allergies/Adverse Reactions: Allergies Allergy/AdvReac Type Severity Reaction Status Date / Time ciprofloxacin [From Cipro] Allergy Hallucinati Verified 09/13/19 17:48 ons gluten Allergy GI Upset Verified 03/12/18 17:26 lactose Allergy GI Upset Verified 03/12/18 17:26 Home Medications: Home Medications Fexofenadine (NF) [Ruthie 180 (NF)] 180 mg PO DAILY 09/13/19 [History Confirmed 09/13/19] Coulter Citrate [Coulter] 5 ml PO DAILY 09/13/19 [History Confirmed 09/13/19] Magnesium Oxide/Magnesium [Magnesium 300 mg Capsule] 400 mg PO DAILY 09/13/19 [ History Confirmed 09/13/19] PMH/Surg Hx/FS Hx/Imm Hx Previously Healthy: Yes - Surgical History Surgical History: Yes Surgery Procedure, Year, and Place: - Family History Known Family History: Positive: Cardiac Disease, Diabetes - Social History Alcohol Use: Rare Substance Use Type: None Smoking Status (MU): Former Smoker When Did the Patient Quit Smoking/Using Tobacco: 10 years ago - Immunization History Most Recent Influenza Vaccination: 2017 Most Recent Pneumonia Vaccination: never Review of Systems All Other Systems Reviewed And Are Negative: Yes Constitutional: Positive: Fatigue ENT: Positive: Nasal Discharge, Sinus Congestion, Sinus Pain/Tenderness Respiratory: Positive: Negative Psychological: Positive: Negative Is Patient Immunocompromised?: No Physical Exam Triage Information Reviewed: Yes Appearance: No Pain Distress, Well-Nourished, Ill-Appearing - mild Vital Signs: Initial Vital Signs Temp 97.7 F 09/13/19 17:42 Pulse 85 09/13/19 17:42 Resp 16 09/13/19 17:42 BP 126/81 09/13/19 17:42 Pulse Ox 99 09/13/19 17:42 Vital Signs Reviewed: Yes Eyes: Positive: Conjunctiva Clear ENT: Positive: Pharynx normal, TMs normal, Sinus tenderness, Uvula midline. Negative: Tonsillar swelling, Tonsillar exudate Neck: Positive: Supple, Nontender, No Lymphadenopathy. Negative: Nuchal Rigidity, Enlarged Nodes @ Respiratory: Positive: Chest non-tender, Lungs clear, Normal breath sounds, No respiratory distress, No accessory muscle use. Negative: Respiratory distress, Crackles, Rhonchi, Stridor, Wheezing Cardiovascular: Positive: RRR Neurological Exam: Normal Psychological Exam: Normal Throat Pain/Nasal Course/Dx - Course Course Of Treatment: Sinusitis: - Increase fluid intake - Motrin /Tylenol as needed for pain - Over the counter medications for symptoms - Antibiotics as directed - Follow up with primary or return within 2-3 days if no improvement - Differential Dx/Diagnosis Differential Diagnosis/HQI/PQRI: Sinusitis, URI Provider Diagnosis: Sinusitis Discharge ED - Sign-Out/Discharge Documenting (check all that apply): Patient Departure All imaging exams completed and their final reports reviewed: No Studies - Discharge Plan Condition: Good Disposition: HOME Prescriptions: Azithromyxin ADRIA (NF) [Z-Adria (Zithromax) 250 mg tabs #6] 2 tab PO .TODAY, THEN 1 DAILY #6 tab Patient Education Materials: Sinusitis (ED) Referrals: Ross MEDEIROS,Gabino Valerio [Primary Care Provider] - Additional Instructions: - Increase fluid intake - Motrin /Tylenol as needed for pain - Over the counter medications for symptoms - Antibiotics as directed - Follow up with primary or return within 2-3 days if no improvement - Billing Disposition and Condition Condition: GOOD Disposition: Home
== END 2019-09-13 19:05 | disposition home or self-care (01) ==
LOC: UCEAST 17:11
DX: J32.9 Chronic sinusitis, unspecified (principal); R53.83 Other fatigue; Z88.1 Allergy status to other antibiotic agents; Z91.011 Allergy to milk products; Z87.891 Personal history of nicotine dependence
CPT/HCPCS: 99212; G0463

== ENCOUNTER 2020-01-07 13:56 | Emergency (ER) | payer OTHER ==
[2020-01-07 14:13] VITALS: BP 118/80
--- NOTE | 2020-01-07 14:24 | UC ---
Throat Pain/Nasal Jeremy HPI - HPI Summary HPI Summary: 34-year-old woman comes in with a chief complaint of sinusitis symptoms. Patient's had influenza-like symptoms started about 14 days ago. Should fever chills body aches. Acetaminophen at that time which did help some symptoms. Fevers of gone away but rhinorrhea is gotten worse now she has yellow green rhinorrhea sometimes with blood in it and a lot of sinus pressure. She has postnasal drip. Denies any shortness of breath or chest congestion.. Patient also has a sore throat. Also has some swelling on her neck. It's bilateral tender to palpation. - History of Current Complaint Chief Complaint: UCGeneralIllness Stated Complaint: EARPAIN, SINUS PROBLEM Time Seen by Provider: 01/07/20 14:05 Hx Last Menstrual Period: Pain Intensity: 8 - Allergies/Home Medications Allergies/Adverse Reactions: Allergies Allergy/AdvReac Type Severity Reaction Status Date / Time ciprofloxacin [From Cipro] Allergy Hallucinati Verified 01/07/20 14:02 ons gluten Allergy GI Upset Verified 01/07/20 14:02 lactose Allergy GI Upset Verified 01/07/20 14:02 Home Medications: Home Medications L.edin,Acid,Ferm,Rhm/B.bif,Long [Control Delivery Probiotc Cplt] 1 tab PO DAILY 10/25/17 [History Confirmed 01/07/20] Multiple Vitamins W/ Minerals [Multivitamin Adults] 1 tab PO DAILY 10/25/17 [ History Confirmed 01/07/20] [place]-3/Dha/Epa/Fish Oil [Fish Oil 1,000 mg Softgel] 1,000 mg PO DAILY 10/25/17 [History Confirmed 01/07/20] Fexofenadine (NF) [Ruthie 180 (NF)] 180 mg PO DAILY 09/13/19 [History Confirmed 01/07/20] [place] Citrate [[place]] 5 mg PO DAILY 09/13/19 [History Confirmed 01/07/20] Magnesium Oxide/Magnesium [Magnesium 300 mg Capsule] 200 mg PO DAILY 09/13/19 [ History Confirmed 01/07/20] Amoxicillin/Clavulanate TAB* [Augmentin TAB 875*] 875 mg PO BID #20 tab [Rx] Ascorbic Acid TAB* [Vitamin C TAB*] 1,000 mg PO DAILY 01/07/20 [History Confirmed 01/07/20] Cholecalciferol (Vitamin D3) [Vitamin D3] 1,000 unit PO BID 01/07/20 [History Confirmed 01/07/20] Escitalopram * [Lexapro 5 mg (NF)] 5 mg PO DAILY 01/07/20 [History Confirmed ] Vitamin B Complex CAP* [B Complex CAP*] 1 cap PO DAILY 01/07/20 [History Confirmed 01/07/20] PMH/Surg Hx/FS Hx/Imm Hx Previously Healthy: Yes - Surgical History Surgical History: Yes Surgery Procedure, Year, and Place: T&A. - Family History Known Family History: Positive: Cardiac Disease, Diabetes - Social History Alcohol Use: Occasionally Substance Use Type: None Smoking Status (MU): Former Smoker When Did the Patient Quit Smoking/Using Tobacco: 10 years ago - Immunization History Most Recent Influenza Vaccination: 2017 Most Recent Pneumonia Vaccination: never Review of Systems All Other Systems Reviewed And Are Negative: Yes Constitutional: Positive: Fever, Other - see hpi Skin: Positive: Negative Eyes: Positive: Negative ENT: Positive: Sore Throat, Ear Ache, Nasal Discharge, Sinus Congestion, Sinus Pain/Tenderness Respiratory: Positive: Negative Cardiovascular: Positive: Negative Gastrointestinal: Positive: Negative Motor: Positive: Negative Neurovascular: Positive: Negative Musculoskeletal: Positive: Myalgia Neurological/Mental Status: Positive: Headache Psychological: Positive: Negative Is Patient Immunocompromised?: No Physical Exam Triage Information Reviewed: Yes Appearance: No Pain Distress, Well-Nourished, Ill-Appearing - mild Vital Signs: Initial Vital Signs Temp 99.4 F 01/07/20 14:06 Pulse 101 01/07/20 14:06 Resp 16 01/07/20 14:06 BP 118/80 01/07/20 14:06 Pulse Ox 99 01/07/20 14:06 Vital Signs Reviewed: Yes Eye Exam: Normal Eyes: Positive: Conjunctiva Clear ENT: Positive: Pharyngeal erythema, Nasal congestion, Nasal drainage, TMs normal Neck: Positive: Supple, Enlarged Nodes @ - Anterior neck lymphadenopathy Respiratory: Positive: Lungs clear, Normal breath sounds, No respiratory distress Cardiovascular: Positive: RRR Musculoskeletal: Positive: Strength Intact, ROM Intact Neurological: Positive: Alert, Muscle Tone Normal Psychological: Positive: Age Appropriate Behavior Skin Exam: Normal Throat Pain/Nasal Course/Dx - Differential Dx/Diagnosis Provider Diagnosis: Sinusitis Discharge ED - Sign-Out/Discharge Documenting (check all that apply): Patient Departure All imaging exams completed and their final reports reviewed: No Studies - Discharge Plan Condition: Stable Disposition: HOME Prescriptions: Amoxicillin/Clavulanate TAB* [Augmentin TAB 875*] 875 mg PO BID #20 tab Patient Education Materials: Sinusitis (ED) Referrals: Kina Up MD [Primary Care Provider] - Additional Instructions: FOLLOW UP WITH YOUR DOCTOR IF NOT COMPLETELY IMPROVED. GET REEVALUATED SOONER IF NOT IMPROVED OR WORSE OR ANY QUESTIONS OR CONCERNS. - Billing Disposition and Condition Condition: STABLE Disposition: Home
== END 2020-01-07 14:28 | disposition home or self-care (01) ==
LOC: UCEAST 13:56
DX: J32.9 Chronic sinusitis, unspecified (principal); Z87.891 Personal history of nicotine dependence; Z88.1 Allergy status to other antibiotic agents; Z91.018 Allergy to other foods; Z91.011 Allergy to milk products
CPT/HCPCS: 99212; G0463